=== PATIENT | female | born 1960 | race Hispanic/Latino ===

== ENCOUNTER 2022-09-21 23:55 | Emergency (ER) | payer MEDICARE ==
[~2022-09-21] VITALS: Ht 157.5 cm; Wt 93.0 kg
[2022-09-22] MEDS ORDERED: LIDOCAINE HCL 1% 20 ML VIAL INJ SCH (01:00)
[2022-09-22 01:09] VITALS: BP 134/76
[2022-09-22] MEDS ORDERED: IBUP-1493 PO (01:46)
== END 2022-09-22 01:59 | disposition home or self-care (01) ==
LOC: EDH 23:55
DX: S81.012A Laceration without foreign body, left knee, initial encounter (principal); S00.83XA Contusion of other part of head, initial encounter; I10 Essential (primary) hypertension; E11.9 Type 2 diabetes mellitus without complications; Z90.710 Acquired absence of both cervix and uterus; W18.30XA Fall on same level, unspecified, initial encounter; Y93.89 Activity, other specified; Y92.89 Other specified places as the place of occurrence of the external cause; Y99.8 Other external cause status
CPT/HCPCS: 12002; 73562; 73600; 73660